=== PATIENT | female | born 1985 | race Hispanic/Latino ===

== ENCOUNTER 2018-09-19 22:00 | Emergency (ER) | payer MEDICAID, OTHER | END 2018-09-19 22:27 | disposition home or self-care (01) | LOC: EDH 22:00 | DX: S02.5XXA Fracture of tooth (traumatic), initial encounter for closed fracture (principal); K02.9 Dental caries, unspecified; J45.909 Unspecified asthma, uncomplicated; F41.9 Anxiety disorder, unspecified; F32.9 Major depressive disorder, single episode, unspecified; Z98.890 Other specified postprocedural states; Z72.0 Tobacco use; X58.XXXA Exposure to other specified factors, initial encounter; Y93.89 Activity, other specified; Y92.89 Other specified places as the place of occurrence of the external cause; Y99.8 Other external cause status ==

== ENCOUNTER 2019-07-07 22:04 | Emergency (ER) | payer OTHER ==
[2019-07-07 22:49] LABS: BASOPHILS % (AUTO) 0.2 % (0.0-5.0); EOSINOPHILS % (AUTO) 0.3 % (0.0-8.0); HEMATOCRIT 37.9 % (36-48); MEAN CORPUSCULAR HEMOGLOBIN 31.5 pg (27.0-33.0); MEAN CORPUSCULAR HGB CONC 34.6 g/dL (32.0-36.0); MEAN CORPUSCULAR VOLUME 91.1 fL (79-99); MONOCYTES % (AUTO) 4.7 % (3.0-13.0); NEUTROPHILS % (AUTO) 74.5 % (40.0-77.0); PLATELET COUNT (AUTO) 162 K/uL (130-400); RED BLOOD CELL COUNT(AUTO) 4.16 MIL/uL (4.00-5.50); RED CELL DISTRIBUTION WIDTH 13.1 % (11.0-15.5); WHITE BLOOD COUNT (AUTO) 6.5 K/uL (4.8-10.8)
[2019-07-07] MEDS ORDERED: ONDANSETRON HCL 4 MG/2 ML VIAL ONE (22:52)
[2019-07-07] MEDS ORDERED: ACETAMINOPHEN 325 MG TAB ONE (22:52)
[2019-07-07 23:02] LABS: CREATININE 0.5 mg/dL (0.5-1.5); POTASSIUM 3.2 mmol/L (3.5-5.1)
[2019-07-07 23:08] LABS: ALBUMIN 3.5 g/dL (3.5-5.0); BILIRUBIN,TOTAL 0.4 mg/dL (0.2-1.0); TOTAL PROTEIN, SERUM 6.4 g/dL (6.0-8.3)
[2019-07-07 23:20] LABS: APPEARANCE,URINE Clear (CLEAR); BILIRUBIN,URINE Negative (NEGATIVE); COLOR,URINE Dark Yellow (YELLOW); GLUCOSE, URINE (UA) Negative (NEGATIVE); KETONES,URINE 15 mg/dL (NEGATIVE); LEUKOCYTE ESTERASE ,URINE Trace (NEGATIVE); NITRATE,URINE Positive (NEGATIVE); OCCULT BLOOD,URINE Large (NEGATIVE); PROTEIN,URINE POS 1+ mg/dL (NEGATIVE)
[2019-07-07 23:21] LABS: HCG,QUAL RESULT NEGATIVE (NEGATIVE)
[2019-07-07 23:27] LABS: AMPHET/METH SCREEN,URINE NEGATIVE (NEGATIVE); BARBITURATE SCREEN, URINE NEGATIVE (NEGATIVE); BENZODIAZEPINES SCREEN,URINE POSITIVE (NEGATIVE); CANNABINOID SCREEN,URINE POSITIVE (NEGATIVE); COCAINE SCREEN,URINE NEGATIVE (NEGATIVE); OPIATE SCREEN,URINE POSITIVE (NEGATIVE); PHENCYCLIDINE SCREEN,URINE NEGATIVE (NEGATIVE)
[2019-07-07 23:29] LABS: BACTERIA,URINE Many /HPF (None Seen); MUCUS,URINE Many LPF (None Seen); SQUAMOUS EPITHELIAL CELL,UR Rare /HPF (0-2)
[2019-07-08] MEDS ORDERED: SULFAMETHOX-TMP DS 800/160 TAB ONE (00:37)
== END 2019-07-08 01:00 | disposition home or self-care (01) ==
LOC: EDH 22:04
DX: N39.0 Urinary tract infection, site not specified (principal); R51 Headache; F41.9 Anxiety disorder, unspecified; J45.909 Unspecified asthma, uncomplicated; F32.9 Major depressive disorder, single episode, unspecified; Z87.891 Personal history of nicotine dependence
CPT/HCPCS: 36415; 70450; 80053; 80305; 81001; 81025; 85025; 87077; 87088; 87186; 96374; 99285; J2405

== ENCOUNTER 2019-11-19 21:14 | Emergency (ER) | payer MEDICAID ==
[2019-11-19 21:42] LABS: BASOPHILS % (AUTO) 0.1 % (0.0-5.0); EOSINOPHILS % (AUTO) 0.1 % (0.0-8.0); HEMATOCRIT 36.2 % (36-48); LYMPHOCYTES % (AUTO) 11.3 % (21.0-51.0); MEAN CORPUSCULAR HEMOGLOBIN 30.5 pg (27.0-33.0); MEAN CORPUSCULAR HGB CONC 34.3 g/dL (32.0-36.0); MEAN CORPUSCULAR VOLUME 89.2 fL (79-99); MONOCYTES % (AUTO) 7.2 % (3.0-13.0); PLATELET COUNT (AUTO) 206 K/uL (130-400); RED BLOOD CELL COUNT(AUTO) 4.06 MIL/uL (4.00-5.50); RED CELL DISTRIBUTION WIDTH 12.4 % (11.0-15.5); WHITE BLOOD COUNT (AUTO) 7.3 K/uL (4.8-10.8)
[2019-11-19] MEDS ORDERED: ACETAMINOPHEN 325 MG TAB ONE (21:59)
[2019-11-19 22:04] LABS: ALANINE AMINOTRANSFERASE 21 U/L (12-78); ALBUMIN 3.9 g/dL (3.5-5.0); ASPARTATE AMINOTRANSFERASE 17 U/L (10-37); BILIRUBIN,TOTAL 0.6 mg/dL (0.2-1.0); CARBON DIOXIDE 22 mmol/L (21-32); CHLORIDE 104 mmol/L (101-111); CREATINE KINASE, TOTAL 347 U/L (21-232); CREATININE 0.7 mg/dL (0.5-1.5); GLOMERULAR FILTR. RATE CALC 102 mL/min (>60); GLUCOSE,RANDOM 102 mg/dL (70-105); SODIUM SERUM 138 mmol/L (136-145); TOTAL PROTEIN, SERUM 7.7 g/dL (6.0-8.3); UREA NITROGEN, BLOOD 10 mg/dL (7-18)
[2019-11-19 22:05] LABS: APPEARANCE,URINE Cloudy (CLEAR); BILIRUBIN,URINE Negative (NEGATIVE); COLOR,URINE Yellow (YELLOW); GLUCOSE, URINE (UA) Negative (NEGATIVE); KETONES,URINE Negative (NEGATIVE); LEUKOCYTE ESTERASE ,URINE Trace (NEGATIVE); NITRATE,URINE Negative (NEGATIVE); OCCULT BLOOD,URINE Trace (NEGATIVE); PROTEIN,URINE POS 1+ mg/dL (NEGATIVE); UROBILINOGEN,URINE 0.2 mg/dL (0.2-1.0)
[2019-11-19 22:10] LABS: POTASSIUM 2.7 mmol/L (3.5-5.1)
[2019-11-19] MEDS ORDERED: POTASSIUM BICARB/CIT AC 25 MEQ TABLET.EFF ONE (22:11)
[2019-11-19 22:12] LABS: ALCOHOL, BLOOD < 3 mg/dL (0-10)
[2019-11-19 22:18] LABS: AMPHET/METH SCREEN,URINE NEGATIVE (NEGATIVE); BARBITURATE SCREEN, URINE NEGATIVE (NEGATIVE); CANNABINOID SCREEN,URINE POSITIVE (NEGATIVE); COCAINE SCREEN,URINE NEGATIVE (NEGATIVE); OPIATE SCREEN,URINE NEGATIVE (NEGATIVE); PHENCYCLIDINE SCREEN,URINE NEGATIVE (NEGATIVE)
[2019-11-19 22:27] LABS: BENZODIAZEPINES SCREEN,URINE POSITIVE (NEGATIVE)
[2019-11-19 22:39] LABS: BACTERIA,URINE Rare /HPF (None Seen); RBC,URINE 0-1 /HPF (0-1); SQUAMOUS EPITHELIAL CELL,UR Moderate /HPF (0-2); WBC,URINE 0-1 /HPF (0-1)
== END 2019-11-19 22:54 | disposition home or self-care (01) ==
LOC: EDH 21:14
DX: G40.89 Other seizures (principal); F13.239 Sedative, hypnotic or anxiolytic dependence with withdrawal, unspecified; J45.909 Unspecified asthma, uncomplicated; F41.9 Anxiety disorder, unspecified; F32.9 Major depressive disorder, single episode, unspecified; Z98.51 Tubal ligation status
CPT/HCPCS: 36415; 70450; 80053; 80305; 81001; 82550; 85025; 93005; 99285; G0480

== ENCOUNTER 2020-09-20 20:26 | Emergency (ER) | payer MEDICAID ==
[2020-09-20 20:54] LABS: APPEARANCE,URINE Clear (CLEAR); BILIRUBIN,URINE Negative (NEGATIVE); COLOR,URINE Yellow (YELLOW); GLUCOSE, URINE (UA) Negative (NEGATIVE); KETONES,URINE Negative (NEGATIVE); LEUKOCYTE ESTERASE ,URINE Negative (NEGATIVE); NITRATE,URINE Negative (NEGATIVE); OCCULT BLOOD,URINE Negative (NEGATIVE); PH,URINE 7.5 (5.0-8.0); PROTEIN,URINE Negative (NEGATIVE); UROBILINOGEN,URINE 0.2 mg/dL (0.2-1.0)
[2020-09-20 20:59] LABS: HCG,QUAL RESULT NEGATIVE (NEGATIVE)
[2020-09-20 21:22] LABS: BASOPHILS % (AUTO) 0.6 % (0.0-5.0); EOSINOPHILS % (AUTO) 1.4 % (0.0-8.0); HEMATOCRIT 38.4 % (36-48); LYMPHOCYTES % (AUTO) 34.9 % (21.0-51.0); MEAN CORPUSCULAR HEMOGLOBIN 31.8 pg (27.0-33.0); MEAN CORPUSCULAR HGB CONC 34.9 g/dL (32.0-36.0); MONOCYTES % (AUTO) 7.4 % (3.0-13.0); NEUTROPHILS % (AUTO) 55.5 % (40.0-77.0); PLATELET COUNT (AUTO) 177 K/uL (130-400); RED BLOOD CELL COUNT(AUTO) 4.22 MIL/uL (4.00-5.50); RED CELL DISTRIBUTION WIDTH 11.9 % (11.0-15.5); WHITE BLOOD COUNT (AUTO) 5.2 K/uL (4.8-10.8)
[2020-09-20 21:26] LABS: CREATININE 0.6 mg/dL (0.5-1.5); POTASSIUM 3.3 mmol/L (3.5-5.1)
[2020-09-20 21:36] LABS: ALBUMIN 3.8 g/dL (3.5-5.0); BILIRUBIN,TOTAL 0.3 mg/dL (0.2-1.0); TOTAL PROTEIN, SERUM 7.7 g/dL (6.0-8.3)
== END 2020-09-20 21:57 | disposition home or self-care (01) ==
LOC: EDH 20:26
DX: F41.9 Anxiety disorder, unspecified (principal); J45.909 Unspecified asthma, uncomplicated; F32.9 Major depressive disorder, single episode, unspecified; Z87.891 Personal history of nicotine dependence
CPT/HCPCS: 36415; 71045; 80053; 81003; 81025; 84484; 85025; 93005

== ENCOUNTER 2021-10-21 12:48 | Emergency (ER) | payer MEDICAID ==
[2021-10-21 13:36] LABS: BASOPHILS % (AUTO) 0.2 % (0.0-5.0); HEMATOCRIT 42.4 % (36-48); LYMPHOCYTES % (AUTO) 5.3 % (21.0-51.0); MEAN CORPUSCULAR HEMOGLOBIN 31.4 pg (27.0-33.0); MEAN CORPUSCULAR HGB CONC 35.4 g/dL (32.0-36.0); MEAN CORPUSCULAR VOLUME 88.9 fL (79-99); MONOCYTES % (AUTO) 6.7 % (3.0-13.0); NEUTROPHILS % (AUTO) 87.4 % (40.0-77.0); PLATELET COUNT (AUTO) 187 K/uL (130-400); RED BLOOD CELL COUNT(AUTO) 4.77 MIL/uL (4.00-5.50); RED CELL DISTRIBUTION WIDTH 12.3 % (11.0-15.5); WHITE BLOOD COUNT (AUTO) 13.2 K/uL (4.8-10.8)
[2021-10-21 13:50] LABS: BILIRUBIN,TOTAL 1.3 mg/dL (0.2-1.0); CREATININE 0.8 mg/dL (0.5-1.5); TOTAL PROTEIN, SERUM 7.9 g/dL (6.0-8.3)
[2021-10-21 13:54] LABS: POTASSIUM 2.6 mmol/L (3.5-5.1)
[2021-10-21] MEDS ORDERED: 0.9%NACL 1000ML 1,000 ML IV SCH (14:00)
[2021-10-21] MEDS ORDERED: POTASSIUM BICARB/CIT AC 25 MEQ TABLET.EFF PO SCH (14:00)
[2021-10-21 14:04] VITALS: BP 130/78
[2021-10-21] MEDS ORDERED: POTASSIUM BICARB/CIT AC 25 MEQ TABLET.EFF ONE ×2 (14:07→14:10)
[2021-10-21 16:09] LABS: APPEARANCE,URINE CLOUDY (CLEAR); BILIRUBIN,URINE SMALL (NEGATIVE); COLOR,URINE YELLOW (YELLOW); GLUCOSE, URINE (UA) NEGATIVE (NEGATIVE); KETONES,URINE 15 mg/dL (NEGATIVE); LEUKOCYTE ESTERASE ,URINE NEGATIVE (NEGATIVE); NITRATE,URINE NEGATIVE (NEGATIVE); OCCULT BLOOD,URINE NEGATIVE (NEGATIVE); PROTEIN,URINE TRACE mg/dL (NEGATIVE)
[2021-10-21 16:35] LABS: BACTERIA,URINE Few /HPF (None Seen); SQUAMOUS EPITHELIAL CELL,UR Few /HPF (0-2)
[2021-10-21 16:36] LABS: AMORPHOUS SEDIMENT,UR Few /LPF (None Seen); MUCUS,URINE Few LPF (None Seen)
[2021-10-21 16:39] LABS: AMPHET/METH SCREEN,URINE NEGATIVE (NEGATIVE); BARBITURATE SCREEN, URINE NEGATIVE (NEGATIVE); BENZODIAZEPINES SCREEN,URINE NEGATIVE (NEGATIVE); CANNABINOID SCREEN,URINE POSITIVE (NEGATIVE); COCAINE SCREEN,URINE NEGATIVE (NEGATIVE); OPIATE SCREEN,URINE NEGATIVE (NEGATIVE); PHENCYCLIDINE SCREEN,URINE NEGATIVE (NEGATIVE)
== END 2021-10-21 21:39 | disposition home or self-care (01) ==
LOC: EDH 12:48
DX: F12.10 Cannabis abuse, uncomplicated (principal); F41.9 Anxiety disorder, unspecified; R55 Syncope and collapse; M25.562 Pain in left knee; M54.2 Cervicalgia; R51.9 Headache, unspecified; F31.9 Bipolar disorder, unspecified; Z98.51 Tubal ligation status
CPT/HCPCS: 36415; 70450; 72125; 73562; 80053; 80305; 81001; 81025; 84484; 85025; 93005; 96360; 99285; J7030

== ENCOUNTER 2022-02-18 14:48 | Emergency (ER) | payer MEDICAID ==
[~2022-02-18] VITALS: Ht 157.5 cm; Wt 72.6 kg
[2022-02-18 14:50] VITALS: BP 141/89
[2022-02-18] MEDS ORDERED: MORPHINE 2 MG SYG IM ONE (15:30)
[2022-02-18] MEDS ORDERED: DIAZEPAM 2 MG TAB PO ONE (15:30)
[2022-02-18] MEDS ORDERED: PRED20TA3 PO (17:55)
[2022-02-18] MEDS ORDERED: IBUP-2077 PO (17:55)
[2022-02-18] MEDS ORDERED: KETOROLAC 60 MG VIAL (30MG/ML) IM ONE (18:00)
== END 2022-02-18 18:00 | disposition home or self-care (01) ==
LOC: EDH 14:48
DX: M54.50 Low back pain, unspecified (principal); G89.29 Other chronic pain; J45.909 Unspecified asthma, uncomplicated; F41.9 Anxiety disorder, unspecified; F32.A Depression, unspecified
CPT/HCPCS: 99284; 81025; 72100; 96372 ×2; J1885

== ENCOUNTER 2024-03-27 11:56 | Emergency (ER) | payer BC, MEDICAID ==
[~2024-03-27] VITALS: Ht 160 cm; Wt 88.0 kg
[~2024-03-27 11:56] MED LIST: IBUP-2077 PO; PRED20TA3 PO
[2024-03-27 12:22] LABS: HEMATOCRIT 39.3 % (36-48); MEAN CORPUSCULAR HEMOGLOBIN 32.1 pg (27.0-33.0); MEAN CORPUSCULAR HGB CONC 34.9 g/dL (32.0-36.0); RED BLOOD CELL COUNT(AUTO) 4.27 MIL/uL (4.00-5.50); RED CELL DISTRIBUTION WIDTH 12.3 % (11.0-15.5); WHITE BLOOD COUNT (AUTO) 6.2 K/uL (4.8-10.8)
[2024-03-27 12:37] LABS: CREATININE 0.5 mg/dL (0.5-1.0); POTASSIUM 3.7 mmol/L (3.5-5.1)
[2024-03-27 12:42] LABS: ALBUMIN 3.3 g/dL (3.5-5.0); TOTAL PROTEIN, SERUM 7.2 g/dL (6.0-8.3)
[2024-03-27 13:06] LABS: BILIRUBIN,TOTAL 0.2 mg/dL (0.2-1.0)
[2024-03-27] MEDS: leveTIRACEtam 500 MG/5 ML SD VIAL IV ONE (14:40)
[2024-03-27] MEDS: leveTIRACEtam 500 MG/5 ML SD VIAL IV SCH (14:40)
[2024-03-27 15:49] LABS: APPEARANCE,URINE CLEAR (CLEAR); BILIRUBIN,URINE NEGATIVE (NEGATIVE); COLOR,URINE LIGHT-YELLOW (YELLOW); GLUCOSE, URINE (UA) NEGATIVE (NEGATIVE); KETONES,URINE NEGATIVE (NEGATIVE); LEUKOCYTE ESTERASE ,URINE NEGATIVE Leu/uL (NEGATIVE); NITRATE,URINE NEGATIVE (NEGATIVE); OCCULT BLOOD,URINE NEGATIVE (NEGATIVE); PROTEIN,URINE NEGATIVE (NEGATIVE); UROBILINOGEN,URINE 0.2 mg/dL (0.2-1.0)
[2024-03-27 15:58] LABS: ADD UA MICROSCOPIC NO
[2024-03-27] MEDS: ONDANSETRON 4MG INJ IVP ONE (16:21)
[2024-03-27] MEDS: ketOROlac 15MG/ML VIAL (15MG/ML) IV ONE (16:21)
[2024-03-27] MEDS: morPHINE 2 MG SYG IVP ONE (16:21)
[2024-03-27 17:58] VITALS: BP 132/79; PULSE 70; RESP 20; TEMP 98.1; O2SAT 98
== END 2024-03-27 18:05 | disposition home or self-care (01) ==
LOC: EDH 11:56
DX: R10.32 Left lower quadrant pain (principal); R11.0 Nausea; R19.7 Diarrhea, unspecified; F41.9 Anxiety disorder, unspecified; F32.9 Major depressive disorder, single episode, unspecified; Z79.899 Other long term (current) drug therapy; J45.909 Unspecified asthma, uncomplicated; Z98.890 Other specified postprocedural states
CPT/HCPCS: 99284; 74176; 96365; 96375; 96366; 80053; 84703; 83690; 85027; 81003; 36415; 80177; J1953; J2270; J2405; J1885

== ENCOUNTER 2024-09-10 15:41 | Emergency (ER) | payer BC ==
[~2024-09-10] VITALS: Ht 160 cm; Wt 92.1 kg
--- NOTE | 2024-09-10 16:21 | NUR ---
PATIENT IN ER LOBBY: PENDING TEST RESULTS FOR CT EXAM.
[2024-09-10 16:44] VITALS: BP 131/93; PULSE 77; RESP 16; TEMP 98.4; O2SAT 96
[2024-09-10] MEDS: ketOROlac 30MG VIAL (30MG/ML) IM ONE (17:30)
--- NOTE | 2024-09-10 17:49 | HMCIMG ---
CT CHEST/ABD/PELV W/O CONTRAST HISTORY: r/o left pneumothorax vs rib fx TECHNIQUE: CT CHEST/ABD/PELV W/O CONTRAST. Coronal and sagittal reformats were obtained. CT was performed with one or more of the following dose reduction techniques: Automated exposure control, adjustment of the mA and/or kV according to the patient's size, or use of the iterative reconstruction technique. FINDINGS: The noncontrast nature this study limits evaluation of the mediastinal structures. The trachea is patent. No evidence of pulmonary consolidation, pleural effusion or pneumothorax. The heart is normal in size. No pericardial effusion. The aorta is normal in caliber. No bulky mediastinal or hilar lymphadenopathy is seen. There is hepatic steatosis. Cholecystectomy changes are seen. There is no CT evidence of solid organ injury in the abdomen and pelvis. 2.2 cm right ovarian cyst is noted. There is a small fat-containing umbilical hernia. No displaced fractures identified. Correlate clinically. IMPRESSION: No pulmonary consolidation or pleural effusion.
--- NOTE | 2024-09-10 18:13 | ERN ---
General Chief Complaint: Low Back Pain/Injury Stated Complaint: LEFT SIDE RIB PAIN Time Seen by MD: 15:44 Time Seen by Midlevel: 15:44 Source: patient History of Present Illness Initial Comments Patient is a 39-year-old female with no significant past medical history presenting to the emergency department with left-sided chest wall pain, left- sided rib pain, and left hip pain after falling two days ago. Patient states she lost her balance while standing on a chair. Denies any loss of consciousness or head injury. Patient states her chest wall pain is worse with movement. Denies being and reports having a bilateral tubal ligation. Allergies: Coded Allergies: No Known Allergies (Verified Allergy, Unknown, 09/10/24) prochlorperazine (Unverified Allergy, Unknown, 09/10/24) tramadol (Unverified Allergy, Unknown, 09/10/24) Home Meds Active Scripts Prednisone (Prednisone) 20 Mg Tablet, 0.5 TAB PO AD for 7 Days, #14 TAB 0 Refills TAKE 1 TAB BY MOUTH THREE TIMES PER DAY X3 DAYS, THEN TAKE 1 TAB BY MOUTH TWICE A DAY X2 DAYS, THEN TAKE 1 TAB BY MOUTH ONCE A DAY X1 DAY. Prov:CAROL JACQUES Jr. [facility] 02/18/22 Ibuprofen (Ibuprofen 800 mg Tab) 800 Mg Tab, 800 MG PO TID PRN for PAIN, #30 TAB Prov:CAROL JACQUES Jr. [facility] 02/18/22 Past Medical History Past Medical History: Anxiety, Asthma, Depression, Seizure, TIA Medical History Other: VERTIGO Past Surgical History: Family History Family History: Negative Social History Social History: Negative, Lives with family Female( History) LMP: Sep 05, 2024 ROS Dictation CONSTITUTIONAL: Negative except for HPI HEAD/FACE: Negative except for HPI EENT: Negative except for HPI RESPIRATORY: Negative except for HPI GASTROINTESTINAL/ABDOMINAL: Negative except for HPI GENITOURINARY: Negative except for HPI MUSCULOSKELETAL: Negative except for HPI INTEGUMENTARY: Negative except for HPI NEUROLOGICAL/PSYCH: Negative except for HPI HEMATOLOGIC/LYMPHATIC: Negative except for HPI All Systems Negative, Except as noted above. 13 point review of systems assessed and all negative except for above. Physical Exam Physical Exam Dictation Vital Signs reviewed General Appearance: Alert, oriented x 3, no acute distress, well developed, nourished. Head and Face: non-traumatic. Eyes: PERRL, pink conjunctivas, eyelid no trauma, anterior chamber with arcus senilis. Ears: Pinnas intact and no signs of trauma or erythema ear canals clear and no discharge TM no erythema Nose: No discharge, no bleeding. Oropharynx: Mouth normal, tongue pink, pharynx clear,no erythema, tonsils no exudates, no abscesses noted, mucous membrane moist Neck: Supple, non-tender, no thyromegaly, no masses, no JVD, no bruits Breast:Deferred Chest:No tenderness, no crepitus, no paradoxical movement, no retractions Lungs:Clear, well-ventilated, symmetric, no rales, no wheezing, no rhonchi, no stridor, good breath sounds bilaterally Heart: Regular rate, regular rhythm, no murmur, no gallops Vascular: no peripheral edema, Abdomen: Soft, positive bowel sounds, nondistended, no guarding, nontender, no rebound, no masses no hepatomegaly, no splenomegaly, no Anderson's sign, no hernias. Rectal: Deferred Genital: Deferred Neurological: Normal speech, motor function intact, sensory function intact Musculoskeletal: Tenderness over the left lateral chest wall, left-sided rib tenderness, left upper quadrant tenderness, back nontender, no step-offs, no midline tenderness Extremities: nontender, full range of motion Skin: Color pink, dry, no turgor, no rash, no lacerations, no abrasions, no contusions. Lymphatic: Deferred Results Laboratory and Microbiology Lab and Micro Result Laboratory Tests Test 09/10/24 16:09 Urine HCG, Qualitative NEGATIVE (NEGATIVE) Labs Reviewed?: Yes MDM MDM: Patient is a 39-year-old female with no significant past medical history presenting to the emergency department with left-sided chest wall pain, left- sided rib pain, and left hip pain after falling two days ago. Patient states she lost her balance while standing on a chair. Denies any loss of consciousness or head injury. Patient states her chest wall pain is worse with movement. Denies being and reports having a bilateral tubal ligation. On physical examination the patient is in mild distress secondary to pain. Initial vital signs are stable. On exam there is Tenderness over the left lateral chest wall, left-sided rib tenderness, left upper quadrant tenderness, back nontender, no step-offs, no midline tenderness. A CT scan of the chest abdomen pelvis was obtained which does not reveal any acute solid organ injury or pneumothorax or rib fractures. The patient was given pain medication in the emergency department he will be discharged home with supportive management. Differential diagnosis: Fall, contusion, fracture, dislocation There are no social concerns with this patient. Prescription drug management Prescriptions will include: None Medical management and examination interpretation discussions were had by me with other qualified healthcare professionals as indicated for the patient's care. ED Course Orders Procedure Category Date Status Time Ct Chest/Abd/Pelv W/O CT 09/10/24 Resulted Contrast 15:52 Ketorolac PHA 09/10/24 Complete Tromethamine 30mg/Ml 16:00 ,Urine Test LAB 09/10/24 Complete 16:24 Current Medications Medications (Trade) Dose Ordered Sig/Beto Route PRN Reason Start Time Stop Time Status Last Admin Dose Admin Ketorolac Tromethamine (toRADol) 30 mg ONCE ONCE IM 09/10/24 16:00 09/10/24 16:01 DC 09/10/24 17:30 Vital Signs Date Time Temp Pulse Resp B/P (MAP) Pulse Ox O2 Delivery O2 Flow Rate FiO2 09/10/24 16:44 98.4 77 16 131/93 96 Room Air* 0 21 09/10/24 15:47 98.4 77 16 131/93 96 Room Air [address] [address] IMAGING REPORT Signed PATIENT: EMMANUELLE RODRIGUEZ MR#: [id number] : 1985 SEX: F AGE: 39 LOCATION: ED ORDER [id number] STATUS: REG ER REPORT#: [id number] SERVICE 1552 REASON: r/o left pneumothroax vs rib fx ORDERING PHYSICIAN: JEZ LION PROCEDURE: CAP WO - CT CHEST/ABD/PELV W/O CONTRAST CT CHEST/ABD/PELV W/O CONTRAST HISTORY: r/o left pneumothorax vs rib fx TECHNIQUE: CT CHEST/ABD/PELV W/O CONTRAST. Coronal and sagittal reformats were obtained. CT was performed with one or more of the following dose reduction techniques: Automated exposure control, adjustment of the mA and/or kV according to the patient's size, or use of the iterative reconstruction technique. FINDINGS: The noncontrast nature this study limits evaluation of the mediastinal structures. The trachea is patent. No evidence of pulmonary consolidation, pleural effusion or pneumothorax. The heart is normal in size. No pericardial effusion. The aorta is normal in caliber. No bulky mediastinal or hilar lymphadenopathy is seen. There is hepatic steatosis. Cholecystectomy changes are seen. There is no CT evidence of solid organ injury in the abdomen and pelvis. 2.2 cm right ovarian cyst is noted. There is a small fat-containing umbilical hernia. No displaced fractures identified. Correlate clinically. IMPRESSION: No pulmonary consolidation or pleural effusion. DICTATED BY: ANDRE HUNTER MD DATE: 09/10/241742 ELECTRONICALLY SIGNED BY: ANDRE HUNTER MD DATE: 09/10/241748 DX & DISP Disposition: Discharge Departure Impression: Primary Impression: Chest wall contusion Additional Impression: Contusion of rib on left side Condition: Stable Additional Instructions: Your CT scan of the chest/abdomen/pelvis does not show any acute injury. There was no signs of collapsed lung or rib fracture. There was no sign of a solid organ injury. It appears your pain is related to a contusion. This will heal over time. You may take Tylenol and Motrin for pain. Follow up with your primary care doctor in 2-3 days for repeat evaluation. Referrals: SHAYNA AYALA MD (PCP) Time of Disposition: 18:09 I have reviewed the case, and I agree with, Diagnosis and Plan I performed the substantive portion of the visit. I have reviewed and p ersonally made and approve the management plan that is documented in the note by myself or the RONEY. I acknowledge for responsibility for the patient's management plan. JEZ LION Sep 10, 2024 18:13
[2024-09-10] MEDS ORDERED: KETO10TA2 PO (19:52)
[2024-09-10] MEDS ORDERED: CYCL10TA16 PO (19:52)
[2024-09-10] MEDS: morPHINE 2 MG SYG IM ONE (20:05)
== END 2024-09-10 20:34 | disposition home or self-care (01) ==
LOC: EDH 15:41
DX: J45.909 Unspecified asthma, uncomplicated (principal); Z86.73 Personal history of transient ischemic attack (TIA), and cerebral infarction without residual deficits; Z88.5 Allergy status to narcotic agent; S20.212A Contusion of left front wall of thorax, initial encounter
CPT/HCPCS: 99285; 71250; 81025; 74176; 96372 ×2; J1885; J2270; 99284